=== PATIENT | male | born 1985 | race Two or more races ===

== ENCOUNTER 2025-02-09 21:48 | Inpatient (IN) | payer OTHER ==
[~2025-02-09] VITALS: Ht 167.6 cm; Wt 99.8 kg
[2025-02-09] MEDS ORDERED: IOPAMIDOL 370 MG/ML 100 ML INFUS..BTL INJ ONE (22:42)
[2025-02-09] MEDS: SODIUM CHLORIDE 0.9% 1000ML 1,000 ML IV ONE (23:03)
[2025-02-09] MEDS: ONDANSETRON HCL INJ 2MG/ML 2ML 2 MG/ML VIAL IV STA (23:03)
[2025-02-09] MEDS: KETOROLAC TROMETHAMINE 30 MG/ML VIAL IV STA (23:08)
[2025-02-10] VITALS (10 sets, daily range): BP systolic 99–138; BP diastolic 59–82; PULSE 113–159; RESP 14–20; TEMP 97–99; O2SAT 92–96
[2025-02-10] MEDS: METRONIDAZOLE 500MG/NS 100ML 100 ML IV ONE (04:10)
[2025-02-10] MEDS: Morphine 4mg INJECTION 4 MG/ML INJ IV ONE ×2 (05:46→07:19)
[2025-02-10] MEDS: ACETAMINOPHEN 1000 MG/100 ML IV STA (06:03)
[2025-02-10] MEDS ORDERED: PROMETHAZINE HCL (IM) 25 MG/ML VIAL IM PRN (06:15)
[2025-02-10] MEDS: SODIUM CHLORIDE 0.9% 1000ML 1,000 ML IV SCH (07:14)
[2025-02-10] MEDS: HYDROMORPHONE 1MG/1ML INJ IV PRN (10:26)
[2025-02-10] MEDS: Morphine 4mg INJECTION 4 MG/ML INJ IV PRN (11:23)
[2025-02-10] MEDS: METRONIDAZOLE 500MG/NS 100ML IV SCH (11:25)
[2025-02-10 12:39] LABS: CHOL/HDL RATIO 6.3 (3.9-4.7); LDL CHOLESTEROL 32.0 MG/DL (60-130)
[2025-02-10 16:37] LABS: BASOPHILS % 0.7 % (0.0-1.0); EOSINOPHILS % 0.0 % (0.0-6.0); LYMPHOCYTES % 11.8 % (18.0-39.1); MONOCYTES % 7.8 % (4.4-11.3); NEUTROPHILS % 79.4 % (38.7-80.0); RED CELL DISTRIBUTION WIDTH 14.1 % (11.7-14.4)
[2025-02-10] MEDS: METOPROLOL TARTRATE INJ 1 MG/ML VIAL IV SCH (17:30)
[2025-02-10] MEDS: FAMOTIDINE 20 MG/2 ML VIAL IV SCH (17:31)
[2025-02-10 18:02] LABS: EST GLOMERULAR FILTRATION RATE 71.0 ML/MIN (>=60)
[2025-02-10] MEDS: METOPROLOL TARTRATE INJ 1 MG/ML VIAL IV ONE (21:22)
[2025-02-11] VITALS (10 sets, daily range): BP systolic 99–130; BP diastolic 59–81; PULSE 97–159; RESP 18–20; TEMP 97–100; O2SAT 92–98
[2025-02-11 10:18] LABS: CORONAVIRUS COVID-19 AG NEGATIVE (NEGATIVE)
[2025-02-11] MEDS: ACETAMINOPHEN 1000 MG/100 ML IV ONE (10:23)
[2025-02-11] MEDS: ACETAMINOPHEN 1000 MG/100 ML IV SCH (17:32)
[2025-02-11] MEDS: METOPROLOL TARTRATE INJ 1 MG/ML VIAL IV PRN (17:43)
[2025-02-12] VITALS (32 sets, daily range): BP systolic 115–148; BP diastolic 78–123; PULSE 86–129; RESP 15–28; TEMP 97.8–98.8; O2SAT 92–100
[2025-02-12 06:22] LABS: HEPATITIS A ANTIBODY IGM (P) Negative
[2025-02-12 06:23] LABS: HEPATITIS B CORE IGM (P) Negative; HEPATITIS B SURFACE AG (P) Negative
[2025-02-12 06:33] LABS: BASOPHILS % 0.3 % (0.0-1.0); EOSINOPHILS % 0.6 % (0.0-6.0); LYMPHOCYTES % 6.6 % (18.0-39.1); MONOCYTES % 7.1 % (4.4-11.3); NEUTROPHILS % 83.8 % (38.7-80.0); RED CELL DISTRIBUTION WIDTH 14.4 % (11.7-14.4)
[2025-02-12 07:08] LABS: EST GLOMERULAR FILTRATION RATE 120.0 ML/MIN (>=60)
[2025-02-12 11:11] LABS: BAND NEUTROPHILS % (MANUAL) 1 %; EOSINOPHILS % (MANUAL) 1 % (0-7); LYMPHOCYTES % (MANUAL) 10 % (19-48); MONOCYTES % (MANUAL) 3 % (3.4-9.0); NEUTROPHILS % (MANUAL) 85 % (40-74); PLATELET ESTIMATE ADEQUATE; PLATELET MORPHOLOGY COMMENT NORMAL
[2025-02-12] MEDS ORDERED: LIDOCAINE HCL 2% LOCAL INJ 5 ML SDV VIAL INJ ONE (12:52)
[2025-02-12] MEDS ORDERED: FENTANYL CITRATE/PF 100MCG/2 ML INJ ONE ×2 (12:52→13:34)
[2025-02-12] MEDS ORDERED: MIDAZOLAM HCL 2 MG/2 ML VIAL ONE (12:53)
[2025-02-12] MEDS ORDERED: PROPOFOL IV EMULSION 10 MG/ML 20 ML VIAL ONE (12:53)
[2025-02-12] MEDS ORDERED: ROCURONIUM BROMIDE 1 ML IV ONE ×2 (12:53→14:04)
[2025-02-12] MEDS ORDERED: DEXTROSE 5%/0.9% SOD CHL 1,000 ML IV SCH (13:00)
[2025-02-12] MEDS ORDERED: DEXAMETHASONE SOD PHOS INJ 4 MG/ML SDV ONE (13:14)
[2025-02-12] MEDS ORDERED: ACETAMINOPHEN 1000 MG/100 ML 100 ML IV ONE (13:36)
[2025-02-12] MEDS ORDERED: SEVOFLURANE INHAL SOLN 250 ML PEN BTL ONE (13:36)
[2025-02-12] MEDS ORDERED: ONDANSETRON HCL INJ 2MG/ML 2ML 2 MG/ML VIAL ONE (14:02)
[2025-02-12] MEDS ORDERED: ROPIVACAINE/EPI/CLONIDINE/KET 50 ML SYRINGE INJ ONE (15:23)
[2025-02-12] MEDS ORDERED: SUGAMMADEX SODIUM 200 MG/2 ML VIAL IV ONE (15:51)
[2025-02-12] MEDS: FENTANYL CITRATE/PF 100MCG/2 ML INJ ONE (16:26)
[2025-02-12] MEDS ORDERED: ENOXAPARIN SOD INJ 40 MG/0.4 ML SYR SC SCH (17:00)
[2025-02-12] MEDS: SODIUM CHLORIDE 0.9% 1000ML 1,000 ML IV SCH (17:38)
[2025-02-12] MEDS: KETOROLAC TROMETHAMINE 30 MG/ML VIAL IV PRN (19:28)
[2025-02-12] MEDS: MEROPENEM 1 GM in SODIUM CHLORIDE 0.9% 100 ML IV SCH (20:55)
[2025-02-12] MEDS: SODIUM CHLORIDE 0.9% 250ML IRRIG IR SCH (22:02)
[2025-02-12] MEDS: HYDROMORPHONE 1MG/1ML INJ IV PRN (22:36)
[2025-02-13] VITALS (28 sets, daily range): BP systolic 97–144; BP diastolic 59–109; PULSE 72–95; RESP 13–25; TEMP 97.4–98.4; O2SAT 94–98
[2025-02-13] MEDS: ACETAMINOPHEN 1000 MG/100 ML IV SCH (00:01)
[2025-02-13] MEDS: ONDANSETRON HCL INJ 2MG/ML 2ML 2 MG/ML VIAL IV PRN (04:58)
[2025-02-13 05:31] LABS: BASOPHILS % 0.5 % (0.0-1.0); EOSINOPHILS % 0.0 % (0.0-6.0); LYMPHOCYTES % 7.5 % (18.0-39.1); MONOCYTES % 5.0 % (4.4-11.3); NEUTROPHILS % 85.4 % (38.7-80.0); RED CELL DISTRIBUTION WIDTH 14.7 % (11.7-14.4)
[2025-02-13 06:08] LABS: EST GLOMERULAR FILTRATION RATE 117.0 ML/MIN (>=60)
[2025-02-13 06:23] LABS: PHOSPHORUS 2.5 MG/DL (2.3-4.7)
[2025-02-13 09:10] LABS: LYMPHOCYTES % (MANUAL) 6 % (19-48); MONOCYTES % (MANUAL) 3 % (3.4-9.0); NEUTROPHILS % (MANUAL) 91 % (40-74); PLATELET ESTIMATE ADEQUATE
[2025-02-13 09:11] LABS: PLATELET MORPHOLOGY COMMENT NORMAL; RBC MORPHOLOGY COMMENT NORMAL
[2025-02-13] MEDS: LACTATED RINGER'S 1,000 ML INJ SCH (10:19)
[2025-02-13] MEDS: ENOXAPARIN SOD INJ 40 MG/0.4 ML SYR SC SCH (17:41)
[2025-02-13] MEDS: INSULIN GLARGINE 100 UNITS/ML VIAL SQ SCH (20:44)
[2025-02-14] VITALS (11 sets, daily range): BP systolic 110–123; BP diastolic 66–89; PULSE 70–87; RESP 17–28; TEMP 98.5; O2SAT 95–98
[2025-02-14 05:06] LABS: BASOPHILS % 0.8 % (0.0-1.0); EOSINOPHILS % 0.5 % (0.0-6.0); LYMPHOCYTES % 24.4 % (18.0-39.1); MONOCYTES % 9.3 % (4.4-11.3); NEUTROPHILS % 59.2 % (38.7-80.0); RED CELL DISTRIBUTION WIDTH 15.1 % (11.7-14.4)
[2025-02-14 05:34] LABS: EST GLOMERULAR FILTRATION RATE 121.0 ML/MIN (>=60)
[2025-02-14 10:31] LABS: LYMPHOCYTES % (MANUAL) 21 % (19-48); MONOCYTES % (MANUAL) 10 % (3.4-9.0); NEUTROPHILS % (MANUAL) 69 % (40-74); PLATELET ESTIMATE ADEQUATE; PLATELET MORPHOLOGY COMMENT NORMAL; RBC MORPHOLOGY COMMENT NORMAL
[2025-02-15] VITALS (10 sets, daily range): BP systolic 129–154; BP diastolic 88–99; PULSE 68–81; RESP 12–25; TEMP 98.5; O2SAT 94–98
[2025-02-15 05:27] LABS: BASOPHILS % 0.8 % (0.0-1.0); EOSINOPHILS % 1.2 % (0.0-6.0); LYMPHOCYTES % 20.9 % (18.0-39.1); MONOCYTES % 8.6 % (4.4-11.3); NEUTROPHILS % 60.4 % (38.7-80.0); RED CELL DISTRIBUTION WIDTH 15.1 % (11.7-14.4)
[2025-02-15 05:50] LABS: EST GLOMERULAR FILTRATION RATE 124.0 ML/MIN (>=60)
[2025-02-15 08:58] LABS: EOSINOPHILS % (MANUAL) 1 % (0-7); LYMPHOCYTES % (MANUAL) 19 % (19-48); METAMYELOCYTES % (MANUAL) 1 % (0-0); MONOCYTES % (MANUAL) 5 % (3.4-9.0); NEUTROPHILS % (MANUAL) 70 % (40-74); PLATELET ESTIMATE ADEQUATE; PLATELET MORPHOLOGY COMMENT NORMAL; RBC MORPHOLOGY COMMENT NORMAL; REACTIVE LYMPHOCYTES 4
[2025-02-15] MEDS: BISACODYL 10 MG SUPP PR ONE (11:01)
[2025-02-16] VITALS (8 sets, daily range): BP systolic 130–152; BP diastolic 87–95; PULSE 74–80; RESP 17–19; TEMP 98–98.7; O2SAT 95–100
[2025-02-16] MEDS: METRONIDAZOLE 500MG/NS 100ML IV SCH (12:15)
[2025-02-17] VITALS (11 sets, daily range): BP systolic 123–144; BP diastolic 80–95; PULSE 56–91; RESP 18–20; TEMP 97.5–98.7; O2SAT 96–99
[2025-02-17] MEDS ORDERED: SODIUM CHLORIDE 0.9% 100 ML ONE (04:07)
[2025-02-17 06:33] LABS: BASOPHILS % 0.6 % (0.0-1.0); EOSINOPHILS % 2.4 % (0.0-6.0); LYMPHOCYTES % 19.3 % (18.0-39.1); MONOCYTES % 7.8 % (4.4-11.3); NEUTROPHILS % 62.0 % (38.7-80.0); RED CELL DISTRIBUTION WIDTH 14.2 % (11.7-14.4)
[2025-02-17 07:05] LABS: EST GLOMERULAR FILTRATION RATE 126.0 ML/MIN (>=60)
[2025-02-17 11:57] LABS: BAND NEUTROPHILS % (MANUAL) 4 %; LYMPHOCYTES % (MANUAL) 11 % (19-48); METAMYELOCYTES % (MANUAL) 3 % (0-0); MONOCYTES % (MANUAL) 2 % (3.4-9.0); MYELOCYTES % (MANUAL) 1 % (0-0); NEUTROPHILS % (MANUAL) 75 % (40-74); REACTIVE LYMPHOCYTES 4
[2025-02-17 11:58] LABS: PLATELET ESTIMATE SLIGHTLY INCREASED; PLATELET MORPHOLOGY COMMENT NORMAL; RBC MORPHOLOGY COMMENT NORMAL
[2025-02-18] VITALS (9 sets, daily range): BP systolic 120–135; BP diastolic 87–92; PULSE 60–100; RESP 18; TEMP 97.6–99.1; O2SAT 72–100
[2025-02-18 05:10] LABS: BASOPHILS % 0.8 % (0.0-1.0); EOSINOPHILS % 2.6 % (0.0-6.0); LYMPHOCYTES % 23.3 % (18.0-39.1); MONOCYTES % 8.4 % (4.4-11.3); NEUTROPHILS % 57.6 % (38.7-80.0); RED CELL DISTRIBUTION WIDTH 14.2 % (11.7-14.4)
[2025-02-18 05:53] LABS: EST GLOMERULAR FILTRATION RATE 127.0 ML/MIN (>=60)
[2025-02-18] MEDS ORDERED: HYDROCODONE/APAP 10MG-325MG TAB PO PRN (10:30)
[2025-02-18] MEDS ORDERED: HYDROCODONE/APAP 7.5MG-325MG 1 EA TAB PO PRN (10:30)
[2025-02-19] VITALS (10 sets, daily range): BP systolic 120–127; BP diastolic 80–93; PULSE 68–83; RESP 17–19; TEMP 97.7–98.1; O2SAT 96–100
[2025-02-19] MEDS: MEROPENEM 1 GM in SODIUM CHLORIDE 0.9% 100 ML IV SCH (12:36)
[2025-02-19] MEDS: METRONIDAZOLE 500 MG TAB PO SCH (14:01)
[2025-02-20] VITALS (12 sets, daily range): BP systolic 106–123; BP diastolic 78–90; PULSE 69–90; RESP 18; TEMP 97.9–98.5; O2SAT 96–100
[2025-02-20] MEDS: PANTOPRAZOLE SOD 40 MG TABEC PO SCH (08:36)
[2025-02-21 03:09] VITALS: BP 107/79; PULSE 93; RESP 18; TEMP 98.1; O2SAT 97
[2025-02-21 06:41] VITALS: PULSE 85; RESP 20; O2SAT 98
[2025-02-21 08:31] VITALS: BP 109/75; PULSE 88; RESP 18; TEMP 98.1; O2SAT 100
[2025-02-21 11:00] VITALS: BP 105/75; PULSE 79; RESP 18; TEMP 98.2; O2SAT 100
== END 2025-02-21 12:33 | disposition home or self-care (01) | DRG 853 ==
LOC: FSED 22:04 → ERHOLD 02-10 06:15 → MED/SURG3 02-10 08:12 → ICU 02-12 16:49 → MED/SURG2 02-15 12:56
PROVIDERS: ADMIT Internal Medicine; ATTEND Internal Medicine
PROC: 3E0333Z Introduction of Anti-inflammatory into Peripheral Vein, Percutaneous Approach (ICD-10-PCS; 2025-02-10)
PROC: 0DTJ4ZZ Resection of Appendix, Percutaneous Endoscopic Approach (ICD-10-PCS; principal; 2025-02-12 13:06)
PROC: 0W9G4ZZ Drainage of Peritoneal Cavity, Percutaneous Endoscopic Approach (ICD-10-PCS; 2025-02-12 13:06)
DX: A41.9 Sepsis, unspecified organism (principal); K35.211 Acute appendicitis with generalized peritonitis, with perforation and abscess; K56.7 Ileus, unspecified; E87.1 Hypo-osmolality and hyponatremia; E87.20 Acidosis, unspecified; R16.0 Hepatomegaly, not elsewhere classified; K52.9 Noninfective gastroenteritis and colitis, unspecified; E87.6 Hypokalemia; K76.0 Fatty (change of) liver, not elsewhere classified; R73.9 Hyperglycemia, unspecified; E66.9 Obesity, unspecified; Z68.36 Body mass index [BMI] 36.0-36.9, adult; Z11.52 Encounter for screening for COVID-19; Z90.49 Acquired absence of other specified parts of digestive tract
CPT/HCPCS: 36415; 74177; 80048; 80053; 80061; 80076; 81003; 82948; 83036; 83605; 83735; 84100; 85025; 88304; 94799; 96376; 99252; 99284; C1766; J1100; J1171; J1308; J1650; J1815; J1885; J2003; J2185; J2250; J2270; J2405; J2470; J2543; J7030; J7050; Q9967